=== PATIENT | female | born 1995 | race Caucasian/White ===

== ENCOUNTER 2017-02-05 07:32 | Emergency (ER) | payer BC ==
[~2017-02-05] VITALS: Ht 160 cm; Wt 56.5 kg
[~2017-02-05 07:32] MED LIST: DOXY100C76 PO; LINA1CAP PO; OMEP20TA PO; PRED10TA PO
[2017-02-05 07:36] VITALS: TEMP 37; Ht 160 cm; Wt 56.5 kg
--- NOTE | 2017-02-05 07:48 | EMERGENCY ROOM VISIT NOTE ---
History Report prepared by Ofe: Sherri Benavides Under the Supervision of: Dr. Nato Lechuga M.D. First contact with patient: 07:39 Chief Complaint: INFECTION Stated Complaint: INFECTION/SWELLING ON FOREHEAD Nursing Triage Summary: I have an infected bump on my forehead. went to pcp placed on doxycylcine took 2 days worth but it isnt looking better to me. denies fever History of Present Illness cNegative fever or chills. The patient states that she saw her PCP two days ago for an infected area to her left forehead. She states that she was started on Doxycycline but denies any relief of her symptoms. The patient rates her discomfort as a 7/10 in severity. She denies ever having anything like this in the past. The patient denies any previous surgeries. She denies any alcohol or tobacco use. Source of History: patient Onset: two days ago Position: head (left forehead) Symptom Intensity: 7/10 Quality: other (infection) Timing: other (persistent) Associated Symptoms: No fevers, No chills Review of Systems See HPI for pertinent positives and negatives. A total of 6 systems were reviewed and were otherwise negative. Past Medical & Surgical Medical Problems: (1) Constipation (2) IBS (irritable bowel syndrome) (3) Sinus infection (4) Wears glasses Family History Cancer Gallbladder disease Kidney disease Kidney stones Social History Smoking Status: Never Smoker Drug Use: none Marital Status: single Housing Status: lives with roommate Occupation Status: [employer] student Current/Historical Medications Scheduled Amoxicillin & Pot Clavulanate (Augmentin 875-125 mg), 875 MG PO BID Prednisone (Prednisone), 50 MG PO DAILY Scheduled PRN Ranitidine Hcl (Zantac), 150 MG PO DAILY PRN for ACID REFLUX Allergies Coded Allergies: Cephalexin (Verified Allergy, Unknown, rash, 02/05/17) Clindamycin (Verified Allergy, Unknown, rash, 02/05/17) Sulfamethoxazole w/Trimethoprim (Verified Allergy, Unknown, hives, ) Physical Exam Vital Signs Date Time Temp Pulse Resp B/P (MAP) Pulse Ox O2 Delivery O2 Flow Rate FiO2 02/05/17 09:11 77 18 114/63 100 02/05/17 07:36 37.0 96 18 113/76 100 Room Air Physical Exam GENERAL: Awake, alert, well-appearing, NAD HENT: Well healing eschar that is slightly raised, not fluctuant, some surrounding erythema, and facial swelling to forehead, with some redness. Medical Decision & Procedures ER Provider Diagnostic Interpretation: Trace amount of fluid noted on bedside ultrasound Medications Administered Medications (Trade) Dose Ordered Sig/Pantera Route Start Time Stop Time Status Last Admin Dose Admin Diphenhydramine HCl (Benadryl Cap) 50 mg NOW ONCE PO 02/05/17 08:00 02/05/17 08:01 DC 02/05/17 08:07 25 MG Amoxicillin/ Clavulanate Potassium (Augmentin Tab) 875 mg NOW ONCE PO 02/05/17 08:00 02/05/17 08:01 DC 02/05/17 08:04 875 MG Prednisone (PredniSONE TAB) 40 mg STK-MED ONCE .ROUTE 02/05/17 08:03 02/05/17 08:04 DC 02/05/17 08:05 40 MG Prednisone (PredniSONE TAB) 10 mg STK-MED ONCE .ROUTE 02/05/17 08:03 02/05/17 08:04 DC 02/05/17 08:05 10 MG ED Course 0742: The patient was evaluated in room B4B. A complete history and physical exam was performed. 0800: Ordered Augmentin Tab 875 mg PO, Benadryl Cap 50 mg PO. 0803: Ordered Prednisone 10 mg .route, Prednisone 40 mg .route. 0850: I reevaluated the patient and she is resting. I discussed the exam findings with the patient and her parents and I discussed the treatment plan. They verbalized complete understanding and agreement. The patient is ready for discharge. Patient was seen and evaluated the bedside. Patient was recent started on doxycycline for a cutaneous lesion to the left upper forehead. She's had some expanding redness and swelling from the side. Patient does have some medication allergies to Bactrim, Keflex, and clindamycin. Upon further elucidation the patient discussed this of a little bit of urticaria with with the Keflex and the Bactrim. Given the patient started on the doxycycline for MRSA coverage Augmentin was added for skin and anaerobic coverage. A bedside ultrasound was performed which did show a very trace amount of fluid within the subcutaneous tissue. Patient did have some soft tissue swelling as well. Given the location of this cellulitic lesion I discussed that I would not perform any sort of I&D as the cosmesis of the face likely would outweigh the very small amount of fluid. I would likely estimated at less than a quarter of a milliliter. Patient was treated with Benadryl, prednisone, and Augmentin. Patient tolerated it well. Patient also has no history of immunosuppressant use , chronic steroids, or diabetes. Patient is afebrile and her vital signs are stable. Patient was deemed suitable for outpatient treatment and follow-up. Patient was told to continue her doxycycline. Patient was told that if she had any more expanding redness of the next 24-48 hours to return. Medical Decision Differential diagnosis: Etiologies such as cellulitis, abscess, MRSA infection, DVT, necrotizing fasciitis, dermatitis, drug eruption, as well as others were entertained.. The patient is a 22 year old white female with a past medical history of IBS who presents to the ED with a cc of a persistent infection beginning two days ago. Patient was seen and evaluated at the bedside. Patient was recently seen 2 days prior for a small skin infection to the left forehead. Patient was started on doxycycline. Patient states she is taking it regularly. Patient states she has had some expanding redness and that the lesion has gotten larger. Patient does have a small area that is indurated over the left forehead. Patient does have some mild swelling over the forehead. Patient does not have any pain with extraocular movements or proptosis. Patient purportedly had some sort of allergy to Keflex. She was given prednisone as well as Benadryl prior to being given some Augmentin. This was completed after doing a bedside ultrasound which showed only show trace fluid. I believe that the amount of fluid did not warrant an I&D or aspirate given the concern for cosmesis of the face and the low likelihood of obtaining fluid. Patient was able tolerate medications without issues. Patient was given wound care instructions and follow-up precautions. They were agreeable with this plan of care. Patient was deemed suitable for outpatient follow-up and treatment. Patient was given strict follow-up, discharge, and return precautions. All questions were answered. Patient was deemed suitable for outpatient follow-up at this time. Patient agreed with the plan of care and was safely discharged home. Medication Reconcilliation Current Medication List: was personally reviewed by me Impression Primary Impression: Cellulitis, face Scribe Attestation The scribe's documentation has been prepared under my direction and personally reviewed by me in its entirety. I confirm that the note above accurately reflects all work, treatment, procedures, and medical decision making performed by me. Departure Information Dispostion Home / Self-Care Prescriptions Prednisone (PREDNISONE) 50 Mg Tab 50 MG PO DAILY for 4 Days, #4 TAB Prov: Nato Lechuga M.D. 02/05/17 Amoxicillin & Pot Clavulanate (Augmentin 875-125 mg) 1 Tab Tab 875 MG PO BID for 7 Days, #14 TAB Prov: Nato Lechuga M.D. 02/05/17 Referrals Eddie Caro M.D. (PCP) [facility] Forms HOME CARE DOCUMENTATION FORM, IMPORTANT VISIT INFORMATION, WORK / SCHOOL INSTRUCTIONS Patient Instructions Cellulitis - [facility], ED Cellulitis Facial, [facility] Additional Instructions Please return to the emergency department if you have worsening or recurrent symptoms not amenable to at-home treatment. Please call for a follow-up appointment with her primary care physician. Please take your medications as prescribed. If you have other concerns and/or complaints please feel free to also call your primary care physician's office or return the ED for further evaluation, management, and treatment. Please allow antibiotics 24-48 hrs to begin working. If you have worsening swelling, redness, or fluctuant area on your forehead, f/u with [facility] and/or return to the ER. You may apply warm compresses to the area. Gentle soap and water for cleaning. No soaks or swimming. Apply antibiotic ointment and a bandage daily. You may take 600 mg Ibuprofen every 6 hours as needed for pain with food for no more than 2 consecutive days. You may take tylenol 1000 mg every 6 hours as needed for pain. You may take motrin and tylenol separately or at the same time. Take your medications as prescribed. If taking an antibiotic consider taking a probiotic and/or eating yogurt, but at the least, please take with food as it can cause upset stomach. You have been examined and treated today on an emergency basis only. This is not a substitute for, or an effort to provide, complete comprehensive medical care. It is impossible to recognize and treat all injuries or illnesses in a single emergency department visit. It is therefore important that you follow up closely with [facility], your PCP, and/or your specialist(s). Call as soon as possible for an appointment. Thank you for your time and consideration. I look forward to speaking with you again soon. Please don't hesitate to call us if you have any questions.
[2017-02-05] MEDS ORDERED: AMOXICILLIN/CLAVULANATE TAB 875 MG TAB PO ONE (08:00)
[2017-02-05] MEDS ORDERED: RANI150T3 PO (08:31)
[2017-02-05] MEDS ORDERED: PRED50TA PO (09:06)
[2017-02-05] MEDS ORDERED: AMOX875T PO (09:06)
[2017-02-05 09:11] VITALS: BP 114/63; PULSE 77; O2SAT 100
== END 2017-02-05 09:12 | disposition home or self-care (01) ==
LOC: C.EDB 07:34
DX: L03.211 Cellulitis of face (principal); K58.9 Irritable bowel syndrome, unspecified; Z88.2 Allergy status to sulfonamides; Z88.8 Allergy status to other drugs, medicaments and biological substances; Z80.9 Family history of malignant neoplasm, unspecified; Z83.79 Family history of other diseases of the digestive system; Z84.1 Family history of disorders of kidney and ureter